=== PATIENT | male | born 1950 | race Caucasian/White ===

== ENCOUNTER 2018-10-31 16:20 | Emergency (ER) | payer MEDICARE, OTHER ==
[2018-10-31 16:43] VITALS: BP 128/74
--- NOTE | 2018-10-31 17:46 | UC ---
Skin Complaint HPI - HPI Summary HPI Summary: 68 y/o male presents to the urgent care c/o insect bite above his Rt upper lip on Monday night 10/26/2018. Pt reports he was mowing the lawn and he felt something bit him. Monday morning he woke up w/ Rt side of face swelling and mild tenderness to palpation. Pt applied a topical antibacterial. This morning he went to the Dentist for annual check up and he advised to come to the urgent care for Tx of periorbital cellulitis. Pt also state PMHX w/ Chronic lymphocytic leukemia s/p radiation many years ago w/o any f/u. Pt has not seen PCP in many years. Pt states pain is 6/10 constant at touch. Pt denies fever, eye pain, visual changes, photophobia, LUNDY, SOB, trismus, dizziness, chest pain, abdominal pain, N/V/d. also denies Hx of MRSA. - History of Current Complaint Chief Complaint: UCSkin Time Seen by Provider: 10/31/18 17:45 Stated Complaint: BUG BITE Hx Obtained From: Patient Onset/Duration: Gradual Onset, Lasting Days - 6 days, Resolved, Worse Since - 3 days ago Skin Exposure Onset/Duration: Days Ago - 6 days ago w/ insect bite, Worse Since : - today Timing: Constant Onset Severity: Mild Current Severity: Moderate Pain Intensity: 6 - at touch Pain Scale Used: 0-10 Numeric Location: Face - RT side of the face w/ swelling and a red rash radiating to his Rt eye Character: Swelling, Redness, Raised, Painful Aggravating Factor(s): Touch Alleviating Factor(s): OTC Creams/Salves Associated Signs & Symptoms: Positive: Rash - RT side of the face w/ swelling and a red rash radiating to his Rt eye, Tenderness. Negative: Fever, Chills, Drainage Related History: Possible Reaction to: Insect - Allergy/Home Medications Allergies/Adverse Reactions: Allergies Allergy/AdvReac Type Severity Reaction Status Date / Time No Known Allergies Allergy Verified 10/31/18 16:43 Home Medications: Home Medications Ascorbic Acid TAB* [Vitamin C TAB*] 500 mg PO DAILY 10/31/18 [History Confirmed 10/31/18] [place]-3 Fatty Acids/Fish Oil [Fish Oil 1,000 mg Softgel] 1 each PO 10/31/18 [ History] Zinc Amino Acid Chelate [Zinc] 50 mg PO 10/31/18 [History] PMH/Surg Hx/FS Hx/Imm Hx Previously Healthy: Yes Other Cancer History: Chronic lymphocitic leukemia w/o management for a long time - Surgical History Surgical History: None - Family History Known Family History: Positive: None - Pt denies FMHX - Social History Occupation: Retired Lives: With Family Alcohol Use: None Substance Use Type: None Smoking Status (MU): Never Smoked Tobacco Review of Systems All Other Systems Reviewed And Are Negative: Yes Constitutional: Positive: Negative Skin: Positive: Rash - RT side of the face w/ swelling and a red rash radiating to his Rt eye s/p insect bite Eyes: Positive: Negative ENT: Positive: Negative Respiratory: Positive: Negative Cardiovascular: Positive: Negative Gastrointestinal: Positive: Negative Genitourinary: Positive: Negative Motor: Positive: Negative Neurovascular: Positive: Negative Musculoskeletal: Positive: Negative Neurological: Positive: Negative Psychological: Positive: Negative Is Patient Immunocompromised?: No Physical Exam - Summary Physical Exam Summary: Vital Signs Reviewed: Yes General: well developed, well nourished old male sitting in the examining table w/o any apparent distress Eye Exam: Normal Eyes: Positive: Conjunctiva Clear - PERRLA, EOMI, fundi grossly normal ENT: Positive: Normal ENT inspection, Hearing grossly normal, Pharynx normal, TMs normal Neck: Positive: Supple, Nontender, No Lymphadenopathy Respiratory: Positive: Chest non-tender, Lungs clear, Normal breath sounds, No respiratory distress Cardiovascular: Positive: RRR, No Murmur, Pulses Normal, Brisk Capillary Refill Abdomen Description: Positive: Nontender, No Organomegaly, Soft. Negative: CVA Tenderness (R), CVA Tenderness (L) Bowel Sounds: Positive: Present Musculoskeletal: Positive: Strength Intact, ROM Intact, No Edema Neurological: Positive: Alert, Muscle Tone Normal Psychological Exam: Normal Skin: Positive: RT side of face w/ small erythematous pustule that is indurated and fluctuant and erythema radiating to the Rt eye w/ surrounding periorbital cellulitis, tender to palpation, swollen, and warm to touch about 2.0 cmx 2.0cm in size. insect bite w/ a scab above the right side of the upper lip on examination. sensation is intact, capillary refill WNL, reflexes WNL Triage Information Reviewed: Yes Vital Signs: Initial Vital Signs Temp 99.2 F 10/31/18 16:38 Pulse 77 10/31/18 16:38 Resp 18 10/31/18 16:38 BP 128/74 10/31/18 16:38 Pulse Ox 98 10/31/18 16:38 Course/Dx - Course Course Of Treatment: 68 y/o male presents to the urgent care c/o insect bite above his Rt upper lip on Monday night 10/26/2018. Pt reports he was mowing the lawn and he felt something bit him. Monday morning he woke up w/ Rt side of face swelling and mild tenderness to palpation. Pt applied a topical antibacterial. This morning he went to the Dentist for annual check up and he advised to come to the urgent care for Tx of periorbital cellulitis. Pt also state PMHX w/ Chronic lymphocytic leukemia s/p radiation many years ago w/o any f/u. Pt has not seen PCP in many years. Pt states pain is 6/10 constant at touch. Pt denies fever, eye pain, visual changes, photophobia, LUNDY, SOB, trismus, dizziness, chest pain, abdominal pain, N/V/d. also denies Hx of MRSA. Hx obtained. Pt is hemodynamically stable, A&OX3 w/ RT side of face w/ small erythematous pustule that is indurated and fluctuant and erythema radiating to the Rt eye w/ surrounding periorbital cellulitis, tender to palpation, swollen, and warm to touch about 2.0 cmx 2.0cm in size, insect bite w/ a scab above the right side of the upper lip on examination. Pt w/ PMHX of CLL w/ any f/u for many years after radiation. Pt possibly inmunosuppressed. Pt's symptoms discussed w/ Dr Romero since I think Pt needs to the ER for a CT, I&D and IV antibiotics. Dr Greene evaluated Pt and she also agrees Pt should go tot he ER. DR Romero recommended Pt to go to the Er for further management. Pt offered ambulance transfer and the risks of not taking it. Pt declined and stated her friend will take him to the [place] ER. Pt left the clinic hemodynamically stable, A&OX3 and ambulating - Differential Diagnoses - Skin Complaint Differential Diagnoses: Abscess, Cellulitis, Contact Dermatitis, MRSA, Other - dental abscess - Diagnoses Provider Diagnosis: Acute abscess of face - Physician Notification/Consults Discussed Patient Care With: Alexandra Romero - Dr romero agreed w/ plan of care Discharge - Sign-Out/Discharge Documenting (check all that apply): Patient Departure - I nathanielhly recommend you to go the ER inmmediately for further management in your facial abscess since you may need I&D and IV antibiotics All imaging exams completed and their final reports reviewed: No Studies - Discharge Plan Condition: Stable Disposition: HOME-RECOMMEND TO ED Patient Education Materials: Abscess (ED) Referrals: Delbert Fuller, [Primary Care Provider] - Additional Instructions: I think you need a higher level or care for your presenting symptoms of facial abscess since need I&D and possible IV antibiotics. I highly recommend you to go to the [place] ER for further evaluation and treatment. The risks of not going can be , sepsis, orbital cellulitis - Billing Disposition and Condition Condition: STABLE Disposition: Home-Recommend to ED - Attestation Statements Provider Attestation: I was available for consult. This patient was seen by the DEV. The patient was not presented to, seen by, or examined by me. -New
== END 2018-10-31 18:58 | disposition home health service (06) ==
LOC: UCEAST 16:20
DX: L02.01 Cutaneous abscess of face (principal); Z85.6 Personal history of leukemia
CPT/HCPCS: 99212; G0463

== ENCOUNTER 2018-10-31 19:52 | Inpatient (IN) | payer MEDICARE, OTHER ==
--- NOTE | 2018-10-31 21:11 | ED ---
Skin Complaint - HPI Summary HPI Summary: Patient states he got bitten by a bug on the upper right lip Monday (5 days ago ) and then on Monday (3 days ago), then he started having facial swelling and redness to the right side of his face, with subsequent purulent drainage from insect bite. Patient has history of CLL, sent from [facility] for further evaluation. Denies fever, eye pain, vision change, discharge from eyes, nasal discharge, cough, sore throat, CP, SOB, N/V/D, bowel pain, change in urine, change in BM. Patient states he completed radiation treatment for CLL 8 years ago, has not followed up since. Does not follow up with a PCP regularly. States chronic weakness due to CLL. - History of Current Complaint Chief Complaint: EDFacialInjury Time Seen by Provider: 10/31/18 21:01 Stated Complaint: RT CHEEK SWOLLEN PER PT Hx Obtained From: Patient Onset/Duration: Started Days Ago Timing: Constant Onset Severity: Moderate Current Severity: Moderate Pain Intensity: 6 Pain Scale Used: 0-10 Numeric Skin Location: Discrete, Face Aggravating Symptom(s): Nothing Alleviating Symptom(s): Nothing Associated Signs & Symptoms: Negative - Allergy/Home Medications Allergies/Adverse Reactions: Allergies Allergy/AdvReac Type Severity Reaction Status Date / Time No Known Allergies Allergy Verified 10/31/18 19:59 PMH/Surg Hx/FS Hx/Imm Hx Endocrine/Hematology History: Denies: Hx Diabetes, Hx Thyroid Disease Cardiovascular History: Denies: Hx Hypertension Respiratory History: Denies: Hx Asthma, Hx Chronic Obstructive Pulmonary Disease (COPD) GI History: Denies: Hx Ulcer History: Denies: Hx Dialysis Sensory History: Denies: Hx Eye Prosthesis Opthamlomology History: Denies: Hx Legally Blind EENT History: Denies: Hx Deafness Neurological History: Denies: Hx Developmental Delay Infectious Disease History: No Infectious Disease History: Denies: Hx Hepatitis, Hx Human Immunodeficiency Virus (HIV), Traveled Outside the [place] in Last 30 Days - Family History Known Family History: Positive: None - Pt denies FMHX - Social History Alcohol Use: None Substance Use Type: Reports: None Smoking Status (MU): Never Smoked Tobacco Review of Systems Constitutional: Negative Eyes: Negative ENT: Negative Cardiovascular: Negative Respiratory: Negative Gastrointestinal: Negative Genitourinary: Negative Musculoskeletal: Negative Skin: Other Neurological: Negative Psychological: Normal All Other Systems Reviewed And Are Negative: Yes Physical Exam - Summary Physical Exam Summary: Apparent insect bite superior to right lip. Indurated erythematous skin lateral to right nostril approximately 3 cm x 3 cm. Non-indurated erythema extending up towards towards right eye. EOMI. Triage Information Reviewed: Yes Vital Signs On Initial Exam: Initial Vitals Temp Pulse Resp BP Pulse Ox 98.7 F 74 16 143/88 98 10/31/18 19:55 10/31/18 19:55 10/31/18 19:55 10/31/18 19:55 10/31/18 19:55 Vital Signs Reviewed: Yes Appearance: Positive: Well-Appearing Skin: Positive: Warm Head/Face: Positive: Normal Head/Face Inspection Eyes: Positive: Normal ENT: Positive: Normal ENT inspection Neck: Positive: Supple Respiratory/Lung Sounds: Positive: Clear to Auscultation Cardiovascular: Positive: Normal Abdomen Description: Positive: Nontender Musculoskeletal: Positive: Normal Neurological: Positive: Normal Psychiatric: Positive: Normal AVPU Assessment: Alert - Kay Coma Scale Best Eye Response: 4 - Spontaneous Best Motor Response: 6 - Obeys Commands Best Verbal Response: 5 - Oriented Coma Scale Total: 15 Diagnostics - Vital Signs Vital Signs Temp Pulse Resp BP Pulse Ox 10/31/18 19:55 98.7 F 74 16 143/88 98 - Laboratory Result Diagrams: 10/31/18 21:27 10/31/18 21:27 Lab Statement: Any lab studies that have been ordered have been reviewed, and results considered in the medical decision making process. Course/Dx - Course Course Of Treatment: Patient states he got bitten by a bug on the upper right lip Monday (5 days ago) and then on Monday (3 days ago), then he started having facial swelling and redness to the right side of his face, with subsequent purulent drainage from insect bite. Patient has history of CLL, sent from [facility] for further evaluation. Denies fever, eye pain, vision change, discharge from eyes, nasal discharge, cough, sore throat, CP, SOB, N/V/D, bowel pain, change in urine, change in BM. Patient states he completed radiation treatment for CLL 8 years ago, has not followed up since. Does not follow up with a PCP regularly. States chronic weakness due to CLL. Vital signs within normal limits. Labs otherwise unremarkable. Discussed patient with attending Dr. Combs who recommended admission. Discussed patient with ENT research associate quality control qc Dr. Razo who approved admission and recommended patient be started on Zosyn and will consult tomorrow. Patient will be admitted to hospitalist - Diagnoses Provider Diagnoses: Abscess Discharge - Sign-Out/Discharge Documenting (check all that apply): Patient Departure Patient Received Moderate/Deep Sedation with Procedure: No - Discharge Plan Condition: Stable Disposition: ADMITTED TO [facility] Referrals: Delbert Fuller DO [Primary Care Provider] - - Billing Disposition and Condition Condition: STABLE Disposition: Admitted to [facility]
[2018-10-31 21:42] LABS: ABS Eosinophils 0.3 10^3/ul (0-0.6); ABS Lymphocytes 1.2 10^3/ul (1.0-4.8); ABS Monocytes 0.8 10^3/ul (0-0.8); ABS Neutrophils 6.1 10^3/ul (1.5-7.7); Eosinophil % 3.7 %; Hematocrit 38 % (42-52); Hemoglobin 13.1 g/dL (14.0-18.0); Lymphocyte % 14.8 %; Mean Corpuscular HGB Conc 35 g/dL (31-36); Mean Corpuscular Hemoglobin 33 pg (27-31); Mean Corpuscular Volume 94 fL (80-94); Mean Platelet Volume 6.9 fL (7.4-10.4); Platelet Count 198 10^3/uL (150-450); Red Blood Count 3.99 10^6 /uL (4.18-5.48); Red Cell Distribution Width 13 % (10-15); White Blood Count 8.4 10^3/uL (3.5-10.8)
[2018-10-31 22:01] LABS: Albumin/Globulin Ratio 1.7 (1-3); BUN/Creatinine Ratio 18.1 (8-20); C Reactive Protein 66.72 mg/L (<8.01); Calcium 9.3 mg/dL (8.6-10.3); EGFR African American 111.8 (>60); EGFR Non-African American 92.4 (>60); Globulin 2.4 g/dL (2-4); Potassium 3.6 mmol/L (3.5-5.0); Total Bilirubin 0.5 mg/dL (0.2-1.0); Total Protein 6.4 g/dL (6.4-8.9)
[2018-10-31] MEDS ORDERED: NS 0.9% 1000 ML** 1,000 ML IV ONE (22:21)
[2018-10-31] MEDS ORDERED: Iohexol 300* (CONTRAST) 10 ML SDV IV ONE (22:29)
[2018-11-01] MEDS ORDERED: Piperacillin/Tazobac ADVAN(*) 3.375 GM in NS 0.9% 100 ML* 100 ML IVPB ONE (01:37)
--- NOTE | 2018-11-01 08:44 | HP ---
ADMISSION HISTORY AND PHYSICAL: DATE OF ADMISSION: 11/01/18 CHIEF COMPLAINT: Right cheek swelling. HISTORY OF PRESENT ILLNESS: This is a 68-year-old gentleman with a past medical history of CLL diagn osed in 2007, status post chemotherapy. He was otherwise in his usual state of health up until when he was mowing his lawn, he stated that he had a swarm of small bugs that bit him on his face. He did not think much of it, he went about doing his daily activities, and by Monday, he n oticed swelling on the right side of his cheek. Again, he ignored it thinking that this was just a r eaction and it will improve on its own; however, this did not improve and the patient had an appointm ent with his dentist anyway on Monday, so he waited until Monday when he saw his dentist who re commended the patient to be evaluated in the emergency room. The patient otherwise denies any fever or chills. Denies any swallowing difficulties. Denies any other sick contacts other than the bug bit e and just complains of some tenderness around the right cheek area. PAST MEDICAL HISTORY: As mentioned, just CLL, status post chemo for 6 months in 2007. PAST SURGICAL HISTORY: No past surgeries. HOME MEDICATIONS: Only taking cyht-ugn-sdttblq medications includin. Vitamin C 500 mg oral daily. 2. Fish oil 1 tablet oral daily. 3. Zinc amino acid chelate 50 mg oral daily. ALLERGIES: No known drug allergies. FAMILY HISTORY: Father at age 51 with rheumatic heart failure. Mother is alive at age 87, but has some dementia. SOCIAL HISTORY: Denied smoking, alcohol, or drug abuse. Lives with his . 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 REVIEW OF SYSTEMS: A 14-point review of systems did not reveal any new information other than the on e stated in HPI. Pertinent positives are right cheek swelling and tenderness, but otherwise no fever , chills. No chest pain. No shortness of breath. No abdominal pain. No nausea, vomiting, diarrhea . PHYSICAL EXAMINATION GENERAL: The patient awake, alert, and oriented x3, did not appear to be in any acute respiratory di stress. VITAL SIGNS: In the ER, temperature was documented at 98.6, BP 138/80, heart rate 65, respiration ra te 16, saturating 97% on room air. HEAD AND NECK: Atraumatic. There is swelling noted on the right maxillary area with minimal tendern ess. No obvious puncta was noted. There is some induration and fluctuance noted. Bilateral pupils were reactive. Oral mucosa was moist. Neck supple. No jugular venous distention. LUNGS: Clear to auscultation bilaterally. No wheezing, rhonchi, rales. HEART EXAMINATION: S1, S2. Regular rate and rhythm. ABDOMEN: Soft, nontender, nondistended. EXTREMITIES: No cyanosis, clubbing, or edema. DIAGNOSTIC STUDIES/LAB DATA: CBC shows normal white count of 8.4; hemoglobin and hematocrit show mi ld anemia with hemoglobin of 13.1, hematocrit of 38; platelet count was noted to be normal at 198. B asic metabolic panel was noted to be unremarkable. C-reactive protein was elevated at 66 and lactic acid minimally elevated at 2.3. CT maxillofacial with contrast shows subcutaneous mass located in the anterior medial aspect of the r ight cheek, containing within this mass is a irregularly shaped fluid collection and an enhancing wal l is nondemonstrated. This could be representing phlegmon or early abscess. Associated subcutaneous inflammation was noted. IMPRESSION: This is a 68-year-old gentleman with past medical history of CLL, status post chemo in 2 008, who is otherwise healthy, came in due to right cheek swelling, noted to have some evidence of a phlegmon versus early abscess. ER already contacted ENT who recommended admission with Zosyn and to be evaluated by ENT in the morning. ASSESSMENT: 1. Facial cellulitis/abscess. Start the patient on Zosyn. We will keep the patient n.p.o. given th e possibility that ENT will evaluate the patient and possibly do an incision and drainage and then ad tony diet post any procedure. 2. DVT prophylaxis with sequential compression device. [id number]/[facility] #: [id number]
--- NOTE | 2018-11-01 09:01 | CONS ---
CONSULTATION NOTE: DATE OF CONSULT: 11/01/18 CONSULTING PHYSICIAN: Dr. Razo. REQUESTING CONSULTATION: Hospitalist service. REASON FOR CONSULT: The patient says that he was stung by a bee about 7 days ago on the right face. It really swelled up to involve most of the right side of his face and then over the week the swelling has gone down from the lower part of his face and around his eye, but it is localizing in the right cheek, underneath his right eye, getting more firm and he presented to the emergency room last night. He also has a lesion on his right side of his nose that he says has been there his whole life, but he did receive chemotherapy for blood cancer in the past. PHYSICAL EXAM: He has induration and swelling in the right cheek. It looks like the bite was just over his mustache on the right side. As I palpate the gingival buckle groove, you can feel some swelling there as well. He also has a raised irregular lesion with a little scab on the right alar rim of his nose. He says it has been there his whole life. ASSESSMENT: The patient was stung by a bee and he has a facial cellulitis and looks like the development of a right facial abscess. He also has a lesion on his nose that is suspicious for basal cell carcinoma, although he says it has been there his whole life. The patient received his first dose of Zosyn last night. I do not think it is an emergency to take him to the operating room today. We can see how he responds to the antibiotics. He can eat today and n.p.o. after midnight and I will see him tomorrow morning and I will plan biopsy of the nasal lesion as well. [id number]/[facility] #: [id number]
[2018-11-01] MEDS: Piperacillin/Tazobac ADVAN(*) 3.375 GM in NS 0.9% 100 ML* 100 ML IVPB SCH ×2 (09:11→16:19)
--- NOTE | 2018-11-01 18:21 | PN ---
Subjective Date of Service: 11/01/18 Interval History: Feels well Seen with at bedside Objective Active Medications: Piperacillin Sod/Tazobactam (Sod 3.375 gm/ Sodium Chloride) 100 mls @ 25 mls/ hr IVPB Q8H ARMAND Last Admin: 11/01/18 16:19 Dose: 25 mls/hr Oxygen Devices in Use Now: None Appearance: NAD Eyes: No Scleral Icterus, PERRLA Ears/Nose/Mouth/Throat: NL Teeth, Lips, Gums, Clear Oropharnyx Neck: NL Appearance and Movements; NL JVP, Trachea Midline Respiratory: Symmetrical Chest Expansion and Respiratory Effort, Clear to Auscultation Cardiovascular: NL Sounds; No Murmurs; No JVD, RRR Abdominal: NL Sounds; No Tenderness; No Distention Extremities: No Edema Skin: - - erythema lateral right nasal fold extending up to eye with central hard induration. Area of inferior medial skin breakdown to largest area of erythema Neurological: Alert and Oriented x 3 Result Diagrams: 10/31/18 21:27 10/31/18 21:27 Assess/Plan/Problems-Billing Assessment: 68 M p/w facial cellulitis associated with abscess - Patient Problems (1) Facial cellulitis Comment: with suspect abscess appreciate ENT assistance potential intervention tomorrow NPO midnight Biopsy of nasal lesion 2/2 concern for malignancy
[2018-11-02] MEDS: Piperacillin/Tazobac ADVAN(*) 3.375 GM in NS 0.9% 100 ML* 100 ML IVPB SCH ×3 (00:28→15:51)
--- NOTE | 2018-11-02 09:38 | PN ---
PROGRESS NOTE: DATE OF VISIT: 11/02/18 SUBJECTIVE: I checked in on the patient this morning with his right facial abscess and some of the surrounding induration has gone down, but the primary swelling and erythema and induration in his cheek has not changed. He says as the antibiotics are going in, it seems to get better and then it feels worse again. He has a scab over his right lip just above the mustache, which looks like he has some suppuration. I cleaned this up and it was a scab and bleeding with no pus. With bimanual palpation with finger in his mouth, I believe he has a right cheek abscess. ASSESSMENT: The patient has a right cheek abscess. PLAN: Incision and drainage of a right cheek abscess. This was from a skin source, so the best approach will probably be to go in through the skin. He understands that there is the risk of scarring, infection, bleeding, facial weakness, and facial numbness from this. I could go in underneath the cheek, but that increases the risk of the contamination of oral bacteria, which might impede healing. The plan for now is incision and drainage of the right cheek abscess and my approach as I plan will be to go through the skin. He has consented and understands the benefits and risks. [id number]/[facility] #: [id number] ZABRINA
[2018-11-02] MEDS ORDERED: Lidocaine 1% w EPI 1:100,000* 30 ML VIAL ONE (13:26)
[2018-11-02] MEDS ORDERED: Lidocaine 2% PF * 5 ML VIAL ONE (13:52)
[2018-11-02] MEDS ORDERED: Ondansetron INJ* 2 MG/ML VIAL ONE (13:52)
[2018-11-02] MEDS ORDERED: Propofol* 10 MG/ML 20 ML BTL ONE (13:52)
[2018-11-02] MEDS ORDERED: Bacitracin OINTMENT* 0.5% 0.5 oz TUBE ONE (14:02)
--- NOTE | 2018-11-02 16:38 | OP ---
DATE OF OPERATION: 11/02/18 - ROOM #412 DATE OF : 52 SURGEON: Michael Razo MD PRE-OP DIAGNOSIS: Right cheek abscess. POST-OP DIAGNOSIS: Right cheek abscess with a raised lesion on the right nasal skin. OPERATIVE PROCEDURE: Incision and drainage of a right cheek/facial abscess and biopsy of a right nasal lesion under general laryngeal mask airway anesthesia. SPECIMENS: Cultures of the abscess and right nasal lesion. COMPLICATIONS: None. DISPOSITION: Good. PACKING: Quarter-inch iodoform packing was used into the abscess cavity. DESCRIPTION OF PROCEDURE: The patient was taken to the operating room, placed in the supine position on the operating table, and maintained with laryngeal mask airway anesthesia. His right face was prepped with Betadine and he was draped in a sterile fashion. He had an abscess in the right cheek, which was apparently from a bee sting. There was a scabbing area just above his mustache on the right side, but there was not any pus coming from this area. While I was doing the procedure, I noticed that he had a raised lesion on the right nose on the skin. I took a 15 blade, cut a little piece of this out to send to Pathology. A 20-gauge needle was used to place through the cheek and into the abscess cavity and pus was expressed. I took an 11 blade and made a stab wound into the middle of his cheek where he was pointing and spread with a hemostat and expressed copious pus. Cultures were taken for anaerobic and aerobic cultures. I used the hemostat to spread and open up any loculations. This tracked down to where he had the scab and so I took the hemostat and placed it in here and got more pus out and the two areas connected and I opened this all up. I irrigated out with copious nasal saline, and through the lower wound above his mustache I packed with quarter-inch iodoform pack. I then closed the stab wound to the middle of his cheek with 6-0 fast absorbing gut. The patient tolerated this procedure well, no complications, and transferred to the recovery room in stable condition. [id number]/[facility] #: [id number] ZABRINA
--- NOTE | 2018-11-02 19:17 | PN ---
<Sanchez Jackson - Last Filed: 11/02/18 19:10> Subjective Date of Service: 11/02/18 Interval History: Patient seen after Incision and drainage procedure. He doesnot have any fresh complaint. Objective Active Medications: Piperacillin Sod/Tazobactam (Sod 3.375 gm/ Sodium Chloride) 100 mls @ 25 mls/ hr IVPB Q8H ARMAND Last Admin: 11/02/18 15:51 Dose: 25 mls/hr Vital Signs - 8 hr 11/02/18 11/02/18 11/02/18 11:32 14:12 14:15 Temperature 99.0 F 97.2 F Pulse Rate 79 73 85 Respiratory 22 Rate Blood Pressure 132/74 147/75 147/81 (mmHg) O2 Sat by Pulse 96 96 95 Oximetry 11/02/18 11/02/18 11/02/18 14:25 14:30 14:36 Temperature Pulse Rate 76 75 75 Respiratory 12 12 12 Rate Blood Pressure 144/68 137/80 150/78 (mmHg) O2 Sat by Pulse 97 97 98 Oximetry 11/02/18 11/02/18 11/02/18 14:40 14:45 14:50 Temperature Pulse Rate 77 77 78 Respiratory 12 10 13 Rate Blood Pressure 142/80 151/79 147/77 (mmHg) O2 Sat by Pulse 96 98 96 Oximetry 11/02/18 11/02/18 11/02/18 15:00 15:01 15:15 Temperature Pulse Rate 81 79 81 Respiratory 13 12 17 Rate Blood Pressure 143/77 158/75 (mmHg) O2 Sat by Pulse 97 95 98 Oximetry 11/02/18 11/02/18 11/02/18 15:50 16:30 17:40 Temperature 98.2 F 98.7 F 98.5 F Pulse Rate 83 88 86 Respiratory 16 18 20 Rate Blood Pressure 154/68 141/67 131/63 (mmHg) O2 Sat by Pulse 97 99 98 Oximetry Oxygen Devices in Use Now: None Exam: Patient is lying on his bed. There is dressing over his right cheek. Chest: Normal heart sound. Respiratory: Normal vesicular sound heard. Neuro: Alert, conscious and oriented to time place and person. Result Diagrams: 10/31/18 21:27 10/31/18 21:27 Assess/Plan/Problems-Billing Assessment: 68 y/o M with PMH h/o CLL admitted with diagnosis of Cellulitis on right cheek associated with abscess. Suspicion of Basal cell carcinoma for another lesion in right nose. - Patient Problems (1) Facial cellulitis Current Visit: Yes Status: Acute Code(s): L03.211 - CELLULITIS OF FACE SNOMED Code(s): 406298052 Comment: Cellulitis with abscess Inscision and drainage done. Pus sent for culture. Biopsy of lesion on right nose. Status and Disposition: [facility] inpatient Attending: Roderick Heard <Roderick Heard - Last Filed: 11/03/18 12:12> Objective Active Medications: Cefazolin Sodium 2 gm/ Sodium (Chloride) 100 mls @ 200 mls/hr IVPB Q8H ARMAND Vital Signs - 8 hr 11/03/18 11/03/18 06:09 08:00 Temperature 97.8 F Pulse Rate 73 Respiratory 18 16 Rate Blood Pressure 129/63 (mmHg) O2 Sat by Pulse 98 Oximetry Result Diagrams: 10/31/18 21:27 10/31/18 21:27 Assess/Plan/Problems-Billing Well appearing, NAD rrr, no mrg CTA b/l soft NT, ND no c/c/e AOX3 Right cheek s/p operation and covered with guaze Assessment: 68 yo M h/o CLL pw facial cellulitis a/w abscess Cellulitis - to OR for drainage today, uneventful -cw zosyn - Patient Problems (1) Facial cellulitis Comment: Cellulitis with abscess s/p drainage in OR 11/02 MSSA positive from pus Cellulitis extending to eye - will remain for continued IV abx narrowed to cefazolin (2) Basal cell carcinoma Comment: Lesion on nose biopsied during abscess drainage Pathology will need follow up on discharge
[2018-11-03] MEDS: Piperacillin/Tazobac ADVAN(*) 3.375 GM in NS 0.9% 100 ML* 100 ML IVPB SCH ×2 (00:24→07:57)
--- NOTE | 2018-11-03 10:12 | PN ---
Subjective Date of Service: 11/03/18 Interval History: Feels swelling less over right face [place] more difficulty swallowing prior which is now resolved Pain well controlled No SOB/N/V, LH, CP Objective Active Medications: Cefazolin Sodium 2 gm/ Sodium (Chloride) 100 mls @ 200 mls/hr IVPB Q8H ARMAND Vital Signs - 8 hr 11/03/18 06:09 Temperature 97.8 F Pulse Rate 73 Respiratory 18 Rate Blood Pressure 129/63 (mmHg) O2 Sat by Pulse 98 Oximetry Oxygen Devices in Use Now: None Appearance: sitting up in bed, NAD Eyes: No Scleral Icterus, PERRLA Ears/Nose/Mouth/Throat: Mucous Membranes Moist Neck: NL Appearance and Movements; NL JVP, Trachea Midline Respiratory: Symmetrical Chest Expansion and Respiratory Effort, Clear to Auscultation Cardiovascular: NL Sounds; No Murmurs; No JVD, RRR Abdominal: NL Sounds; No Tenderness; No Distention, No Hepatosplenomegaly Lymphatic: No Cervical Adenopathy Extremities: No Edema Skin: - - area of previous abscess to right of nose packed, surrounding erythema still extending to inferior border of eye Neurological: Alert and Oriented x 3, - - EOMI, PERRLA Result Diagrams: 10/31/18 21:27 10/31/18 21:27 Microbiology and Other Data: Microbiology 11/02/18 13:50 Skin and Soft Tissue MRSA/MSSA (PCR - Final Misc Source (See Comment) Mrsa Negative S.aureus Positive Gram Stain - Final 11/02/18 13:49 Skin and Soft Tissue MRSA/MSSA (PCR - Final Misc Source (See Comment) Mrsa Negative S.aureus Positive Gram Stain - Final 10/31/18 21:32 Aerobic Blood Culture - Preliminary Blood Venous No Growth Day 2 Anaerobic Blood Culture - Preliminary No Growth Day 2 10/31/18 21:27 Aerobic Blood Culture - Preliminary Blood Venous No Growth Day 2 Anaerobic Blood Culture - Preliminary No Growth Day 2 Assess/Plan/Problems-Billing Assessment: 68 y/o M with PMH h/o CLL admitted with diagnosis of Cellulitis on right cheek associated with abscess. Suspicion of Basal cell carcinoma for another lesion in right nose. - Patient Problems (1) Facial cellulitis Comment: Cellulitis with abscess s/p drainage in OR 11/02 MSSA positive from pus Cellulitis extending to eye - will remain for continued IV abx narrowed to cefazolin (2) Basal cell carcinoma Comment: Lesion on nose biopsied during abscess drainage Pathology will need follow up on discharge Status and Disposition: inpatient for IV antibiotics
[2018-11-03] MEDS ORDERED: ceFAZolin 2 GM PREMIX in ORs 2 GM/50 ML BAG IVPB SCH (16:00)
[2018-11-03] MEDS: ceFAZolin* 2 GM in NS 100 MLS Q8H (Pharmacy Admix) IVPB SCH (16:04)
--- NOTE | 2018-11-03 19:13 | PN ---
PROGRESS NOTE: DATE OF SERVICE: 11/03/18 HISTORY: The patient is postop day 1 from his incision and drainage of his right facial cheek abscess. He is doing well. On physical examination the wound is as expected. There is still some induration and swelling. There is no purulence coming out from where the iodoform pack was placed. I pulled this out and removed it and put a Band-Aid. ASSESSMENT: The patient is doing well. RECOMMENDATIONS: Continue IV antibiotics into tomorrow Augmentin would be a good choice to transition him to. It is going to continue to stay somewhat indurated and swollen for quite a while now, probably 3 to 4 weeks. As long as it is not getting worse, I think he will do well and he can follow up with me as an outpatient. I spoke to Dr. Roderick Heard. [id number]/CPS #: [id number] ZABRINA
[2018-11-04] MEDS: ceFAZolin* 2 GM in NS 100 MLS Q8H (Pharmacy Admix) IVPB SCH ×2 (00:30→08:50)
[2018-11-04 11:44] VITALS: BP 141/68
--- NOTE | 2018-11-04 15:16 | DS ---
<Sanchez Jackson - Last Filed: 11/04/18 17:05> Resident Discharge Summary Discharge Summary: Date of Admission: 11/01/18 Date of Discharge: 11/04/18 Admitting MD: Francis Tellez MD Attending MD: Roderick Heard MD Primary Care Physician: Delbert Fuller, DO Home Medications Medication Instructions Recorded Confirmed Type Ascorbic Acid TAB* [Vitamin C 500 mg PO DAILY 10/31/18 11/02/18 History TAB*] [place]-3 Fatty Acids/Fish Oil [Fish 1 each PO DAILY 10/31/18 11/02/18 History Oil 1,000 mg Softgel] Zinc Amino Acid Chelate [Zinc] 50 mg PO DAILY 10/31/18 11/02/18 History Cephalexin CAP* [Keflex 500 CAP*] 500 mg PO TID #30 cap 11/04/18 Rx 68 y/o M with past medical history of CLL( on remission) presented with right cheek swelling, redness and pain. Admitted with diagnosis of Right facial cellulitis with abscess. Disposition: Home Condition: Improved. Primary Diagnosis: Right facial cellulitis with abscess. Secondary Diagnosis: CLL under remission. Diagnostic Imaging: Maxillofacial CT: Subcutaneous mass located in anterior medial aspect of right cheek with irregularly shaped fluid collection. Pertinent Laboratory Results: Lactic ACID: 2.3 ON PRESENTATION/ AFTER 1 DAY 0.7 Hospital Course: During hospital stay, nodular lesion was noted on right alar rim of his noted. For cellulitis and abscess incision and drainage was done and pus culture showed Methicillin sensitive S. aureus. Biopsy of nodular lesion has been taken and sent for lab to r/o BCC. Follow Up Instructions: In case of an emergency or after clinic hours, please go to your nearest Emergency Department. You may also call the [facility] wire straightening machine operator at . F/U with PCP in 1-2 weeks. Collect biopsy report and if anything significant visit doctor. <Roderick Heard - Last Filed: 11/04/18 17:51> Resident Discharge Summary Discharge Summary: Date of Admission: 11/01/18 Date of Discharge: 11/04/18 Admitting MD: Francis Tellez MD Attending MD: Roderick Heard MD Primary Care Physician: Delbert Fuller, DO Home Medications Medication Instructions Recorded Confirmed Type Ascorbic Acid TAB* [Vitamin C 500 mg PO DAILY 10/31/18 11/02/18 History TAB*] [place]-3 Fatty Acids/Fish Oil [Fish 1 each PO DAILY 10/31/18 11/02/18 History Oil 1,000 mg Softgel] Zinc Amino Acid Chelate [Zinc] 50 mg PO DAILY 10/31/18 11/02/18 History Cephalexin CAP* [Keflex 500 CAP*] 500 mg PO TID #30 cap 11/04/18 Rx Follow Up Instructions: In case of an emergency or after clinic hours, please go to your nearest Emergency Department. You may also call the [facility] wire straightening machine operator at . Right facial cellulitis associated with underlying abscess s/p I&D in OR by ENT with culture positive for MSSA. Patient treated with zosyn then narrowed to cafazolin with culture results. Will complete 10 day (total) course abx on discharge. Follow up: 1: Resolution of cellulitis 2. Pathology results from right nasal lesion biopsy performed during I&D Attestation Documenting Resident: Renetta Supervising Physician: Félix Attestation: This service has been performed in part by a resident under the direction of a teaching physician.Félix Gray , performed the service, or was physically present during the critical, or tan portions of the service, furnished by the resident. I participated in the management of the patient.
== END 2018-11-04 13:25 | disposition home or self-care (01) | DRG 603 ==
LOC: ED 19:52 → MED 11-01 05:10
PROVIDERS: ADMIT Internal Medicine; ATTEND Internal Medicine
PROC: 0HB1XZX Excision of Face Skin, External Approach, Diagnostic (ICD-10-PCS; 2018-11-02)
PROC: 0H91XZZ Drainage of Face Skin, External Approach (ICD-10-PCS; principal; 2018-11-02 16:00)
DX: L03.211 Cellulitis of face (principal); L02.01 Cutaneous abscess of face; B95.61 Methicillin susceptible Staphylococcus aureus infection as the cause of diseases classified elsewhere; C44.311 Basal cell carcinoma of skin of nose; W57.XXXA Bitten or stung by nonvenomous insect and other nonvenomous arthropods, initial encounter; Z85.6 Personal history of leukemia; Z92.21 Personal history of antineoplastic chemotherapy; Z79.899 Other long term (current) drug therapy; Z82.49 Family history of ischemic heart disease and other diseases of the circulatory system; Y92.9 Unspecified place or not applicable
CPT/HCPCS: 36415; 70487; 80053; 83605; 85025; 86140; 87040; 87070; 87073; 87076; 87077; 87186; 87205; 87640; 87641; 88305; 99284; A9270-GY; J0690; J2405; J2543; J2704; Q9967